=== PATIENT | male | born 1990 | race African-American/Black ===

== ENCOUNTER 2019-11-29 11:11 | Inpatient (IN) | payer OTHER ==
[2019-11-29 12:04] VITALS: BMI 22.9
--- NOTE | 2019-11-29 12:16 | HP ---
COWS - Scale Resting Pulse: 1= ND 81-100 Sweatin= Chills/Flushing Restless Observation: 1= Difficult to Sit Still Pupil Size: 0= Normal to Room Light Bone or Joint Aches: 1= Mild Discomfort Runny Nose/ Eye Tearin= Runny Nose/Eyes GI Upset > 30mins: 3= Vomiting/Diarrhea Tremor Observation: 0= None Yawning Observation: 0= None Anxiety or Irritability: 2=Irritable/Anxious Goose Flesh Skin: 0=Smooth Skin COWS Score: 11 CIWA Score - Admission Criteria OASAS Guidelines: Admission for Medically Managed Detox: Requires at least one of the followin. CIWA greater than 12 2. Seizures within the past 24 hours 3. Delirium tremens within the past 24 hours 4. Hallucinations within the past 24 hours 5. Acute intervention needed for co occurring medical disorder 6. Acute intervention needed for co occurring psychiatric disorder 7. Severe withdrawal that cannot be handled at a lower level of care (continued vomiting, continued diarrhea, abnormal vital signs) requiring intravenous medication and/or fluids 8. Admitting History and Physical - Admission Chief Complaint: Mr. Fallon is a 29 yo who presents requesting detox for heroin use. History of Present Illness: Mr. Fallon is a 29 yo who presents requesting detox for heroin use. This is his first treatment at [facility]. He was in a Suboxone program for 3 years. He was weaned down and stopped Suboxone in October of 2018. He relapsed to heroin use 2 weeks after stopping Suboxone. PMH: noncontributory PSH: none Psych: anxiety, insomnia, takes Klonopin 0.5 mg bid, prescribed. Substance use history Heroin: 10 bags per day, IV, last use today at 3 am, first use age 24 Denies: all other substance use IStop 10/26/2019 10/26/2019 CLONAZEPAM 0.5 MG TABLET 42.0 14 CLINTON LUIS 11/23/2019 11/23/2019 CLONAZEPAM 0.5 MG TABLET 42.0 14 MD PERALES SILVIU 10/26/2019 11/06/2019 CLONAZEPAM 0.5 MG TABLET 42.0 14 CLINTON LUIS 10/11/2019 10/11/2019 CLONAZEPAM 0.5 MG TABLET 42.0 14 MD PERALES SILVIU History Source: Patient Limitations to Obtaining History: No Limitations - Smoking History Smoking history: Current some day smoker Have you smoked in the past 12 months: Yes Aproximately how many cigarettes per day: 7 - Alcohol/Substance Use Hx Alcohol Use: No History of Substance Use: reports: Heroin - Social History Usual Living Arrangement: Yes: With Parent Do you think of yourself as: Straight/Heterosexual History of Recent Travel: No Admission ROS [facility] - HPI Allergies/Adverse Reactions: Allergies Allergy/AdvReac Type Severity Reaction Status Date / Time No Known Allergies Allergy Verified 11/29/19 11:58 - Review of Systems Constitutional: No Symptoms Reported EENT: reports: No Symptoms Reported Respiratory: reports: No Symptoms reported Cardiac: reports: No Symptoms Reported GI: reports: Nausea, Vomiting : reports: No Symptoms Reported Musculoskeletal: reports: No Symptoms Reported Integumentary: reports: No Symptoms Reported Neuro: reports: No Symptoms reported Endocrine: reports: No Symptoms Reported Hematology: reports: No Symptoms Reported Psychiatric: reports: Anxious, other (insomnia) Patient History - Smoking Cessation Smoking history: Current every day smoker Aproximately how many cigarettes per day: 7 Initiated information on smoking cessation: Yes 'Breaking Loose' booklet given: 11/29/19 - Substances abused Heroin Substance route: Injection Frequency: Daily Amount used: 5-10bags Age of first use: 24 Date of last use: 11/29/19 Admission Physical Exam [facility] - Vital Signs Vital Signs: Vital Signs - 24 hr 11/29/19 12:00 Temperature 97.2 F L Pulse Rate 94 H Respiratory 18 Rate Blood Pressure 145/97 - Physical General Appearance: Yes: Thin HEENTM: Yes: Within Normal Limits Respiratory: Yes: Within Normal Limits Neck: Yes: Within Normal Limits Breast: Yes: Breast Exam Deferred Cardiology: Yes: Regular Rate, S1, S2 Abdominal: Yes: Within Normal Limits Genitourinary: Yes: Other (deferred) Back: Yes: Normal Inspection Musculoskeletal: Yes: Within Normal Limits Extremities: Yes: Other (track patterson forearms) Neurological: Yes: sheet metal technician II-XII NML intact, Fully Oriented, Alert, Normal Mood/ Affect Integumentary: Yes: Track Patterson Lymphatic: Yes: Within Normal Limits - Diagnostic (1) Opioid abuse, uncomplicated Current Visit: Yes Status: Acute (2) Nicotine dependence Current Visit: Yes Status: Acute (3) Insomnia Current Visit: Yes Status: Acute Cleared for Admission S - Detox or Rehab [facility] Level of Care: Medically Managed Breathalyzer - Breathalyzer Breathalyzer: 0 Urine Drug Screen - Test Device Lot number: [id number] Expiration date: 09/22/21 - Control Is test valid?: Yes - Results Drug screen NEGATIVE: No Urine drug screen results: THC-Marijuana, FEN-Fentanyl, MOP-Opiates Inpatient Rehab Admission - Rehab Decision to Admit Inpatient rehab admission?: No
[2019-11-29] MEDS ORDERED: IBUPROFEN 400 MG TABLET (FP) PO PRN (12:34)
[2019-11-29] MEDS ORDERED: MAG HYDROX/AL HYDROX/SIMETH 30 ML UNIT-DOSE CUP PO PRN (12:34)
[2019-11-29] MEDS ORDERED: cloNIDine HCL 0.1 MG TABLET PO PRN (12:34)
[2019-11-29] MEDS ORDERED: MENTHOL/PHENOL 1 EACH UD MM PRN (12:34)
[2019-11-29] MEDS ORDERED: MAGNESIUM CITRATE 300 ML BOTTLE PO PRN (12:34)
[2019-11-29] MEDS ORDERED: MAGNESIUM HYDROX 2400MG/30ML ORAL SUSPENSION 30 ML CUP PO PRN (12:34)
[2019-11-29] MEDS ORDERED: ACETAMINOPHEN 325 MG TABLET (FP) PO PRN ×2 (12:34)
[2019-11-29] MEDS ORDERED: BISMUTH SUBSALICYLATE 524 MG/30 ML UD PO PRN (12:34)
[2019-11-29] MEDS ORDERED: METHADONE HCL 10 MG TABLET (FOR DETOX USE ONLY) PO ONE (14:00)
[2019-11-29] MEDS: hydrOXYzine PAMOATE 25 MG CAPSULE (FP) PO PRN ×2 (14:59→22:13)
[2019-11-29 17:11] LABS: HEMATOCRIT 40.7 % (35.4-49); HEMOGLOBIN 13.8 GM/dL (11.7-16.9); MCH 29.5 pg (25.7-33.7); MEAN CELL VOLUME 86.9 fl (80-96); MEAN PLT VOLUME 8.6 fl (7.5-11.1); PLATELET COUNT 241 K/MM3 (134-434); RBC 4.69 M/mm3 (4.00-5.60); RDW 14.6 % (11.9-15.9); WHITE BLOOD COUNT 9.2 K/mm3 (4.0-10.0)
[2019-11-29 17:24] LABS: ALBUMIN 3.9 g/dl (3.4-5.0); BILIRUBIN,TOTAL 0.3 mg/dL (0.2-1); BLOOD UREA NITROGEN 11.6 mg/dL (7-18); CALCIUM 9.5 mg/dL (8.5-10.1); TOT PROT 8.4 g/dl (6.4-8.2)
[2019-11-29] MEDS: MELATONIN 5 MG TABLETS PO PRN (22:14)
[2019-11-29] MEDS: METHOCARBAMOL 500 MG TABLET PO PRN (22:15)
[2019-11-29] MEDS: THIAMINE HCL 100 MG TABLET (FP) PO SCH (22:27)
[2019-11-30] MEDS ORDERED: METHADONE HCL 5 MG TABLET (FOR DETOX USE ONLY) ONE (08:43)
[2019-11-30] MEDS ORDERED: METHADONE HCL 10 MG TABLET (FOR DETOX USE ONLY) ONE (08:43)
[2019-11-30] MEDS ORDERED: METHADONE (DETOX) 20 MG, METHADONE (DETOX) 5 MG PO ONE (10:00)
[2019-11-30] MEDS: hydrOXYzine PAMOATE 25 MG CAPSULE (FP) PO PRN (10:11)
[2019-11-30] MEDS: PRENATAL VITAMINS W/ FOLIC ACID TABLET (FP) PO SCH (10:11)
--- NOTE | 2019-11-30 10:19 | CONSULT ---
[facility] Psychiatric Consult - Data Date of interview: 11/30/19 Admission source: [facility] in [place], [place] Identifying data: Mr Fallon is a 29 years old single Black male, unemployed with no source of income, living with family seeking detox treatment for opioid Substance Abuse History: Reports history of heroin use. Refer to addiction counselor's summary for further information Medical History: Unremarkable. Smokes 7-10 cigarettes daily Psychiatric History: Reports seeing a psychiatrist at [facility] in [place], [place] and he is prescribed Klonopin for anxiety. 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 Denies previous psychiatric hospitalization or suicidal attempt. At present, reports feeling anxious and sleeping poorly Physical/Sexual Abuse/Trauma History: Denies history of abuse as a child or DV relationship as an adult Mental Status Exam - Mental Status Exam Alert and Oriented to: Time, Place, Person Cognitive Function: Fair Patient Appearance: Well Groomed Mood: Anxious Affect: Appropriate Patient Behavior: Cooperative Speech Pattern: Clear Voice Loudness: Normal Thought Process: Intact, Goal Oriented Thought Disorder: Not Present Hallucinations: Denies Suicidal Ideation: Denies Homicidal Ideation: Denies Insight/Judgement: Poor Sleep: Poorly Appetite: Good Muscle strength/Tone: Normal Gait/Station: Normal Psychiatric Findings - Problem List ([place] 1, 2,3) (1) Substance-induced anxiety disorder Current Visit: Yes Status: Acute (2) Substance-induced sleep disorder Current Visit: Yes Status: Acute (3) Uncomplicated opioid dependence Current Visit: Yes Status: Acute (4) Nicotine dependence Current Visit: Yes Status: Chronic - Initial Treatment Plan Initial Treatment Plan: 1) Start Melatonin 10 mg po HS prn for insomnia and Vistaril 50 mg po Q 4hrs prn for anxiety. 2) Continue inpatient detoxification
[2019-11-30] MEDS ORDERED: hydrOXYzine PAMOATE 50 MG CAPSULE (FP) PO PRN (10:21)
[2019-11-30] MEDS ORDERED: PNEUMOCOCCAL 23 VACCINE 0.5 ML VIAL IM ONE (12:00)
[2019-11-30] MEDS ORDERED: PNEUMOC 13-VAL CONJ-DIP CRM/PF 0.5 ML DISP.SYRIN IM ONE (12:00)
[2019-11-30] MEDS ORDERED: FLU VACCINE QUAD 60 MCG/0.5 ML (MDV 19-20) IM ONE (12:00)
[2019-11-30] MEDS: diazePAM 5 MG TABLET PO PRN ×3 (12:50→22:15)
--- NOTE | 2019-11-30 12:54 | PN ---
[facility] COWS - Scale Resting Pulse: 1= NE 81-100 Sweatin= Chills/Flushing Restless Observation: 1= Difficult to Sit Still Pupil Size: 0= Normal to Room Light Bone or Joint Aches: 2= Severe Diffuse Aches Runny Nose/ Eye Tearin= Nasal Congestion GI Upset > 30mins: 0= None Tremor Observation of Outstretched Hands: 2= Slight Tremor Visible Yawning Observation: 1= 1-2x During Session Anxiety or Irritability: 2=Irritable/Anxious Goose Flesh Skin: 0=Smooth Skin COWS Score: 11 BHS Progress Note (SOAP) Subjective: sweats shakes agitation body aches interrupted sleep Objective: 11/30/19 12:53 Vital Signs Temperature 97.9 F 11/30/19 08:51 Pulse Rate 81 11/30/19 08:51 Respiratory Rate 18 11/30/19 08:51 Blood Pressure 128/79 11/30/19 08:51 O2 Sat by Pulse Oximetry (%) Laboratory Tests 11/29/19 11/29/19 11/29/19 12:50 12:50 12:50 WBC 9.2 RBC 4.69 Hgb 13.8 Hct 40.7 MCV 86.9 MCH 29.5 MCHC 34.0 RDW 14.6 Plt Count 241 MPV 8.6 Sodium 138 Potassium 4.0 Chloride 102 Carbon Dioxide 29 Anion Gap 7 L BUN 11.6 Creatinine 1.0 Est GFR (CKD-EPI)AfAm 116.54 Est GFR (CKD-EPI)NonAf 100.55 Random Glucose 111 H Calcium 9.5 Total Bilirubin 0.3 AST 19 ALT 17 Alkaline Phosphatase 97 Total Protein 8.4 H Albumin 3.9 RPR Titer Nonreactive labs noted aaox3 ambulating no acute distress Assessment: 11/30/19 12:54 withdrawals Plan: continue detox valium 10mg q4hrs x 3 days prn increase fluids
[2019-11-30] MEDS: METHOCARBAMOL 500 MG TABLET PO PRN (22:15)
[2019-11-30] MEDS: THIAMINE HCL 100 MG TABLET (FP) PO SCH (22:15)
[2019-11-30] MEDS: SUVOREXANT 10 MG TABLET PO PRN (22:17)
[2019-12-01] MEDS: diazePAM 5 MG TABLET PO PRN ×4 (07:19→20:13)
[2019-12-01] MEDS ORDERED: METHADONE HCL 10 MG TABLET (FOR DETOX USE ONLY) PO ONE (10:00)
[2019-12-01] MEDS: PRENATAL VITAMINS W/ FOLIC ACID TABLET (FP) PO SCH (10:07)
--- NOTE | 2019-12-01 14:04 | PN ---
S COWS - Scale Resting Pulse: 1= OR 81-100 Sweatin= Chills/Flushing Restless Observation: 1= Difficult to Sit Still Pupil Size: 0= Normal to Room Light Bone or Joint Aches: 1= Mild Discomfort Runny Nose/ Eye Tearin= Nasal Congestion GI Upset > 30mins: 2= Nausea/Diarrhea Tremor Observation of Outstretched Hands: 1= Tremor S[place], Not Seen Yawning Observation: 0= None Anxiety or Irritability: 1=Feels Anxious/Irritable Goose Flesh Skin: 3=Piloerection COWS Score: 12 BHS Progress Note (SOAP) Subjective: Interrupted sleep, sweats, tremors and malaise Objective: 12/01/19 14:02 Withdrawal sx Vital Signs Temperature 98.1 F 12/01/19 08:52 Pulse Rate 72 12/01/19 08:52 Respiratory Rate 17 12/01/19 08:52 Blood Pressure 139/84 12/01/19 08:52 O2 Sat by Pulse Oximetry (%) VSS Laboratory Last Values WBC 9.2 K/mm3 (4.0-10.0) 11/29/19 12:50 RBC 4.69 M/mm3 (4.00-5.60) 11/29/19 12:50 Hgb 13.8 GM/dL (11.7-16.9) 11/29/19 12:50 Hct 40.7 % (35.4-49) 11/29/19 12:50 MCV 86.9 fl (80-96) 11/29/19 12:50 MCH 29.5 pg (25.7-33.7) 11/29/19 12:50 MCHC 34.0 g/dl (32.0-35.9) 11/29/19 12:50 RDW 14.6 % (11.9-15.9) 11/29/19 12:50 Plt Count 241 K/MM3 (134-434) 11/29/19 12:50 MPV 8.6 fl (7.5-11.1) 11/29/19 12:50 Sodium 138 mmol/L (136-145) 11/29/19 12:50 Potassium 4.0 mmol/L (3.5-5.1) 11/29/19 12:50 Chloride 102 mmol/L (98-107) 11/29/19 12:50 Carbon Dioxide 29 mmol/L (21-32) 11/29/19 12:50 Anion Gap 7 MMOL/L (8-16) L 11/29/19 12:50 BUN 11.6 mg/dL (7-18) 11/29/19 12:50 Creatinine 1.0 mg/dL (0.55-1.3) 11/29/19 12:50 Est GFR (CKD-EPI)AfAm 116.54 11/29/19 12:50 Est GFR (CKD-EPI)NonAf 100.55 11/29/19 12:50 Random Glucose 111 mg/dL (74-106) H 11/29/19 12:50 Calcium 9.5 mg/dL (8.5-10.1) 11/29/19 12:50 Total Bilirubin 0.3 mg/dL (0.2-1) 11/29/19 12:50 AST 19 U/L (15-37) 11/29/19 12:50 ALT 17 U/L (13-61) 11/29/19 12:50 Alkaline Phosphatase 97 U/L (45-117) 11/29/19 12:50 Total Protein 8.4 g/dl (6.4-8.2) H 11/29/19 12:50 Albumin 3.9 g/dl (3.4-5.0) 11/29/19 12:50 RPR Titer Nonreactive (NONREACTIVE) 11/29/19 12:50 Labs noted, no panic values Assessment: 12/01/19 14:03 Withdrawal sx Plan: Continue detox
[2019-12-01] MEDS: SUVOREXANT 10 MG TABLET PO PRN (22:32)
[2019-12-01] MEDS: THIAMINE HCL 100 MG TABLET (FP) PO SCH (22:32)
[2019-12-01] MEDS: METHOCARBAMOL 500 MG TABLET PO PRN (22:33)
[2019-12-02] MEDS: diazePAM 5 MG TABLET PO PRN ×5 (01:39→21:02)
[2019-12-02] MEDS ORDERED: METHADONE HCL 5 MG TABLET (FOR DETOX USE ONLY) ONE (08:57)
[2019-12-02] MEDS ORDERED: METHADONE HCL 10 MG TABLET (FOR DETOX USE ONLY) ONE (08:58)
[2019-12-02] MEDS ORDERED: METHADONE (DETOX) 10 MG, METHADONE (DETOX) 5 MG PO ONE (10:00)
[2019-12-02] MEDS: PRENATAL VITAMINS W/ FOLIC ACID TABLET (FP) PO SCH (10:00)
--- NOTE | 2019-12-02 15:27 | PN ---
BHS COWS - Scale Resting Pulse: 0= LA 80 or Below Sweatin= Chills/Flushing Restless Observation: 0= Sits Still Pupil Size: 0= Normal to Room Light Bone or Joint Aches: 1= Mild Discomfort Runny Nose/ Eye Tearin= Runny Nose/Eyes GI Upset > 30mins: 1= Stomach Cramp Tremor Observation of Outstretched Hands: 2= Slight Tremor Visible Yawning Observation: 0= None Anxiety or Irritability: 1=Feels Anxious/Irritable Goose Flesh Skin: 0=Smooth Skin COWS Score: 8 BHS Progress Note (SOAP) Subjective: Sweating, tremor, interrupted sleep Objective: 12/02/19 15:25 Last Vital Signs Temp Pulse Resp BP Pulse Ox 98.6 F 62 18 132/77 12/02/19 12:24 12/02/19 12:24 12/02/19 12:24 12/02/19 12:24 Laboratory Tests 11/29/19 11/29/19 11/29/19 12:50 12:50 12:50 WBC 9.2 RBC 4.69 Hgb 13.8 Hct 40.7 MCV 86.9 MCH 29.5 MCHC 34.0 RDW 14.6 Plt Count 241 MPV 8.6 Sodium 138 Potassium 4.0 Chloride 102 Carbon Dioxide 29 Anion Gap 7 L BUN 11.6 Creatinine 1.0 Est GFR (CKD-EPI)AfAm 116.54 Est GFR (CKD-EPI)NonAf 100.55 Random Glucose 111 H Calcium 9.5 Total Bilirubin 0.3 AST 19 ALT 17 Alkaline Phosphatase 97 Total Protein 8.4 H Albumin 3.9 RPR Titer Nonreactive Labs reviewed: glucose 111 (high) Assessment: 12/02/19 15:26 Withdrawal sxs Hyperglycemia noted Plan: Continue detox Encouraged PO water intake Hyperglycemia: mild, most likely r/t withdrawal, follow up with PCP for monitoring
[2019-12-02] MEDS: THIAMINE HCL 100 MG TABLET (FP) PO SCH (21:02)
[2019-12-02] MEDS: METHOCARBAMOL 500 MG TABLET PO PRN (22:12)
[2019-12-02] MEDS: SUVOREXANT 10 MG TABLET PO PRN (22:12)
[2019-12-03] MEDS: diazePAM 5 MG TABLET PO PRN ×4 (03:08→18:03)
[2019-12-03] MEDS ORDERED: METHADONE HCL 10 MG TABLET (FOR DETOX USE ONLY) PO ONE (10:00)
[2019-12-03] MEDS: PRENATAL VITAMINS W/ FOLIC ACID TABLET (FP) PO SCH (10:07)
[2019-12-03] MEDS: METHOCARBAMOL 500 MG TABLET PO PRN (22:07)
[2019-12-03] MEDS: THIAMINE HCL 100 MG TABLET (FP) PO SCH (22:07)
[2019-12-03] MEDS: MELATONIN 5 MG TABLETS PO PRN (22:08)
[2019-12-04] MEDS: diazePAM 5 MG TABLET PO PRN (05:19)
[2019-12-04] MEDS ORDERED: METHADONE HCL 5 MG TABLET (FOR DETOX USE ONLY) PO ONE (06:00)
[2019-12-04 06:37] VITALS: BP 120/79; PULSE 102; TEMP 97.2
--- NOTE | 2019-12-04 09:08 | DS ---
[facility] Detox Discharge Summary Admission Date: 11/29/19 Discharge Date: 12/04/19 - History Present History: Opioid Dependence - Physical Exam Results Vital Signs: Vital Signs Temperature 97.2 F L 12/04/19 05:10 Pulse Rate 102 H 12/04/19 05:10 Respiratory Rate 16 12/04/19 05:10 Blood Pressure 120/79 12/04/19 05:10 O2 Sat by Pulse Oximetry (%) Pertinent Admission Physical Exam Findings: Vital Signs Temperature 97.2 F L 12/04/19 05:10 Pulse Rate 102 H 12/04/19 05:10 Respiratory Rate 16 12/04/19 05:10 Blood Pressure 120/79 12/04/19 05:10 O2 Sat by Pulse Oximetry (%) Laboratory Tests 11/29/19 11/29/19 11/29/19 12:50 12:50 12:50 WBC 9.2 RBC 4.69 Hgb 13.8 Hct 40.7 MCV 86.9 MCH 29.5 MCHC 34.0 RDW 14.6 Plt Count 241 MPV 8.6 Sodium 138 Potassium 4.0 Chloride 102 Carbon Dioxide 29 Anion Gap 7 L BUN 11.6 Creatinine 1.0 Est GFR (CKD-EPI)AfAm 116.54 Est GFR (CKD-EPI)NonAf 100.55 Random Glucose 111 H Calcium 9.5 Total Bilirubin 0.3 AST 19 ALT 17 Alkaline Phosphatase 97 Total Protein 8.4 H Albumin 3.9 RPR Titer Nonreactive Hep C Ab Diagnostic HCV RNA PCR w/Genot Rflx Liver Fibrosis Interp 11/30/19 08:00 WBC RBC Hgb Hct MCV MCH MCHC RDW Plt Count MPV Sodium Potassium Chloride Carbon Dioxide Anion Gap BUN Creatinine Est GFR (CKD-EPI)AfAm Est GFR (CKD-EPI)NonAf Random Glucose Calcium Total Bilirubin AST ALT Alkaline Phosphatase Total Protein Albumin RPR Titer Hep C Ab Diagnostic >11.0 H HCV RNA PCR w/Genot Rflx Hcv not detected Liver Fibrosis Interp aaox3 ambulating no acute distress unable to do a physical exam; pt left before shift began - Treatment Hospital Course: Detox Protocol Followed, Detoxed Safely, Responded well, Discharged Condition Good, Rehab Referral Accepted - Medication Discharge Medications: Ambulatory Orders clonazePAM [Klonopin -] 0.5 mg PO BID 11/29/19 - Diagnosis (1) Insomnia Status: Acute (2) Substance-induced anxiety disorder Status: Acute (3) Substance-induced sleep disorder Status: Acute (4) Uncomplicated opioid dependence Status: Chronic (5) Nicotine dependence Status: Chronic Qualifiers: Nicotine product type: cigarettes Substance use status: uncomplicated Qualified Code(s): F17.210 - Nicotine dependence, cigarettes, uncomplicated - AMA Did Patient Leave Against Medical Advice: No
== END 2019-12-04 07:48 | disposition home or self-care (01) | DRG 773 ==
LOC: YASAS 11:11 → Y6N 12:56
PROVIDERS: ADMIT Allergy & Immunology; ATTEND Allergy & Immunology
PROC: HZ2ZZZZ Detoxification Services for Substance Abuse Treatment (ICD-10-PCS; principal; 2019-11-29)
DX: F11.23 Opioid dependence with withdrawal (principal); F17.210 Nicotine dependence, cigarettes, uncomplicated; F19.280 Other psychoactive substance dependence with psychoactive substance-induced anxiety disorder; F19.282 Other psychoactive substance dependence with psychoactive substance-induced sleep disorder; G47.00 Insomnia, unspecified; R73.9 Hyperglycemia, unspecified
CPT/HCPCS: 36415; 80053; 85027; 86593; 86803; 87389; J0735